=== PATIENT | male | born 1965 | race Caucasian/White ===

== ENCOUNTER 2024-10-12 05:43 | Emergency (ER) | payer BC, SELFPAY ==
[2024-10-12 05:44] VITALS: BMI 32.3
[2024-10-12 05:46] VITALS: BP 146/80; PULSE 116; RESP 20; TEMP 36.9; O2SAT 100
--- NOTE | 2024-10-12 05:53 | EDRME_ITS ---
Rapid Medical Screening Exam [facility] Arrival date/time: 10/12/24 05:43 58M with history of hereditary angioedema (after many tests by cyanide case hardener) presents to ED with some tongue swelling and generalized itchy rash for the past few weeks. Patient has been preemptively intubated twice for this, most recently in the early . Patient's PCP Dr. Kurtz gave him two courses of steroids which resolved problems, but then it comes back after he's done. Patient states epi has never done anything, and Benadryl only makes me sleepy. Chief Complaint: Allergic Reaction Vital signs: Vital Signs Temperature 98.5 F 10/12/24 05:46 Pulse Rate 116 H 10/12/24 05:46 Respiratory Rate 20 10/12/24 05:46 Blood Pressure 146/80 H 10/12/24 05:46 Pulse Oximetry (%) 100 10/12/24 05:46 Oxygen Delivery Method Room Air 10/12/24 05:46
--- NOTE | 2024-10-12 06:37 | EDNOTE_ITS ---
ED Allergic Reaction RME/HPI General Chief complaint: Allergic Reaction Stated complaint: ALLERIGIC REACTION Time Seen by Provider: 10/12/24 06:36 Arrival date/time: 10/12/24 05:43 RME / HPI RME / HPI narrative: 10/12/24 05:4 58M with history of hereditary angioedema (after many tests by gag writer) presents to ED with some tongue swelling and generalized itchy rash for the past few weeks. Patient has been preemptively intubated twice for this, most recently in the early . Patient's PCP Dr. Kurtz gave him two courses of steroids which resolved problems, but then it comes back after he's done. Patient states epi has never done anything, and Benadryl only makes me sleepy. DR. COURTNEY MAIN ED EVALUATION 58 year old male with history of hereditary angioedema and previously intubated as a result presents to the ED for evaluation of tongue swelling today. Accompanied by a diffuse rash.Reportedly the swelling began ~1 week ago. However noted in the last 12 hours the tongue swelling is progressively worsening. States he does have an Epi pen at home which is . Denies taking any medications at home adding the Benadryl only makes him tired. Denies fever, chills, sweating. Denies chest pain, cough, shortness of breath. Denies nausea, vomiting, diarrhea, constipation. Denies dysuria, urinary frequency and urgency. Related Data Home Medications ?Medication ?Instructions ?Recorded ?Confirmed omeprazole 20 mg capsule,delayed 20 mg PO DAILY PRN ACID REFLUX ##0 07/21/13 11/09/22 release Previous Rx's ?Medication ?Instructions ?Recorded docusate sodium 100 mg capsule 100 mg PO BID #40 caps 11/10/22 (Colace) hydrocodone 5 mg-acetaminophen 325 1 tab PO Q6H PRN pain (scale score 11/10/22 mg tablet 7-10) #20 tabs ibuprofen 600 mg tablet 600 mg PO Q8H PRN pain (scale 11/10/22 score 4-6) #15 tabs Allergies Allergy/AdvReac Type Severity Reaction Status Date / Time No Known Allergies Allergy Verified 02/08/24 11:16 Review of Systems Review of Systems Narrative Review of Systems: GEN: No fever, no chills, no weight loss EYES: No discharge, no visual changes, no pain HEENT: +tongue swelling. No ear pain, no congestion, no sore throat PULM: No shortness of breath, no cough, no congestion CV: No chest pain, no dyspnea on exertion, no palpitations GI: No nausea, no vomiting, no diarrhea, no pain, no constipation : No frequency, no urgency, no dysuria MUSC/SKEL: No joint pain, no back pain SKIN: +rash PSYCH: No hallucinations, no depression HEME/LYMPH: No easy bleeding or bruising tendencies NEURO: No weakness, no headache Past Medical History Past Medical History NEUROLOGIC: Positive Neurological Disorders and Meningitis RESPIRATORY: Positive Sleep Apnea GASTROINTESTINAL: Positive Hiatal Hernia and Gastroesophageal Reflux Disease MUSCULOSKELETAL: Positive Carpal Tunnel Syndrome and Fractures ENDOCRINE: Positive Diabetes Mellitus Type 2 OTHER HISTORY: Positive Chicken Pox and Clostridium Difficile Family History FAMILY HISTORY: Positive Family Endocrine Disorders Surgical History SURGICAL: Positive Eye Surgery and Vasectomy Social History SMOKING STATUS: Never smoker ED Exam Narrative Physical exam: GENERAL APPEARANCE: alert and oriented x 4, well-developed, well-nourished, no acute distress HEENT: Normocephalic, atraumatic; pupils equal, round, reactive to light; EOMI; mucous membranes pink, moist; oropharynx clear;bottom lip swelling NECK: Supple LUNGS: CTABL; no wheezes, no rales, no rhonchi HEART: Regular rate, regular rhythm; normal S1, S2; no murmurs ABDOMEN: non distended; normal BS; soft, no tenderness, no guarding, no rebound; no masses, no organomegaly, no hernia BACK: no CVA tenderness EXTREMITIES: atraumatic; no edema NEUROLOGIC: awake; alert and oriented x4; cranial nerves II-XII grossly intact; no focal sensory or motor deficits PSYCHIATRIC: appropriate mood and affect SKIN: warm, dry, normal color; diffuse urticaria Course Quality Measures none Orders Category Date Time Status Blood glucose [Bedside Blood Glucose] NOW Care 10/12/24 05:55 Completed Insert IV NOW Care 10/12/24 05:55 Completed Dexamethasone Inj [Decadron Inj] Med 10/12/24 05:55 Discontinued 10 mg IV X1 ONE DiphenhydrAMINE INJ [Benadryl Inj] Med 10/12/24 06:37 Discontinued 50 mg IVP X1 ONE EPINEPHrine Inj [Adrenalin Inj] Med 10/12/24 06:37 Discontinued 0.3 mg SC X1 ONE Famotidine Inj [Pepcid Inj] Med 10/12/24 05:56 Discontinued 20 mg IVP X1 ONE Famotidine Inj [Pepcid Inj] Med 10/12/24 12:15 Discontinued 20 mg IVP X1 ONE MethylPREDNISolone.* [SoluMEDROL Inj] Med 10/12/24 05:55 Discontinued 125 mg IVP X1 ONE Sodium Chloride 0.9% 1000 ml [Ns] 1,000 ml Med 10/12/24 05:56 Discontinued IV 500 mls/hr Reevaluation(s) Reevaluation #1: Patient reports improvement in symptoms. Patient remains clinically stable throughout the emergency department visit. We reviewed all the treatment plans. Patient is amenable to discharge. Strict return precautions were outlined. Patient was discharged in stable condition. Time: 11:00 Vital Signs Vital signs: Vital Signs Temperature 98.5 F 10/12/24 05:46 Pulse Rate 116 H 10/12/24 05:46 Respiratory Rate 20 10/12/24 05:46 Blood Pressure 146/80 H 10/12/24 05:46 Pulse Oximetry (%) 100 10/12/24 05:46 Oxygen Delivery Method Room Air 10/12/24 05:46 Pulse ox is 100% on room air which is adequate. Allergic Reaction Patient data External records reviewed:: [facility] previous records (I reviewed ED visit on 02/08/2024) Clinical information provided by:: patient Social determinants that could affect healthcare access:: none Patient has the following chronic illnesses:: Hereditary angioedema How is presenting disease/condition affected by chronic disease/condition?: exacerbated by Evaluation data The following diagnostics were reviewed and interpreted by me:: other (specify) (none) Lab and/or radiology exams considered but not ordered:: none Interpretation Summary: N/A Medications / Prescriptions Medications or Prescriptions considered but not ordered:: none Medication administrations:: Medication Administration History Discontinued Medications Dexamethasone Sodium Phosphate (Dexamethasone Sod Phos Inj 10 Mg/Ml Vial) 10 mg IV X1 ONE Stop: 10/12/24 05:56 Last Admin: 10/12/24 06:44 Dose: Not Given Documented By: SF Non-Admin Reason: Discontinued Diphenhydramine HCl (Diphenhydramine Inj 50 Mg/Ml Vial) 50 mg IVP X1 ONE Stop: 10/12/24 06:38 Last Admin: 10/12/24 06:48 Dose: 50 mg Documented By: VERA Epinephrine HCl (Epinephrine Inj 1 Mg/Ml Amp) 0.3 mg SC X1 ONE Stop: 10/12/24 06:38 Last Admin: 10/12/24 06:49 Dose: 0.3 mg Documented By: VERA Famotidine (Famotidine Inj 10 Mg/Ml Vial 2 Ml) 20 mg IVP X1 ONE Stop: 10/12/24 05:57 Last Admin: 10/12/24 06:48 Dose: 20 mg Documented By: VERA Famotidine (Famotidine Inj 10 Mg/Ml Vial 2 Ml) 20 mg IVP X1 ONE Stop: 10/12/24 12:16 Last Admin: 10/12/24 12:32 Dose: 20 mg Documented By: LOUISE Sodium Chloride (Ns) 1,000 mls @ 500 mls/hr IV .Q2H ONE Stop: 10/12/24 07:55 Last Infusion: 10/12/24 08:40 Dose: 0 mls/hr Documented By: Admin: 10/12/24 06:47 Dose: 500 mls/hr Documented By: VERA Methylprednisolone Sodium Succinate (Methylprednisolone Sod Succ 62.5 Mg/Ml 2ml Vial) 125 mg IVP X1 ONE Stop: 10/12/24 05:56 Last Admin: 10/12/24 06:48 Dose: 125 mg Documented By: VERA See above Consultations Consultation(s) initiated? (list below): No Diagnosis Most likely diagnosis given after review of the tests above:: Allergic reaction Angioedema Urticaria Admission Indicated Admission indicated?: not indicated Admission Request Was there a request for admission?: No Disposition Plan Disposition Plan: Discharge Discharge Attestation Discharge Attestation: The patient and all family members were given an opportunity to ask questions and understood the discharge instructions. Discharge instructions specifically effects, indications for sooner follow up or return to the emergency department, and the expected course of current diagnosis. Patient condition: Stable Discharge Plan Plan Patient Disposition: HOME (Self Care) Prescriptions/Referrals Prescriptions/Med Rec: No Action omeprazole 20 MG capsule,delayed release(DR/EC) 20 mg PO DAILY PRN (Reason: ACID REFLUX) Qty: 0 hydrocodone-acetaminophen 5-325 mg tablet 1 tab PO Q6H MDD 4 PRN (Reason: pain (scale score 7-10)) Qty: 20 0RF docusate sodium [Colace] 100 mg capsule 100 mg PO BID Qty: 40 0RF ibuprofen 600 mg tablet 600 mg PO Q8H PRN (Reason: pain (scale score 4-6)) Qty: 15 0RF Referrals: Temporary Provider,ED [Physician] - In 1 week Problem List Clinical Impression: Allergic reaction, Angioedema, Urticaria Patient/Caregiver Discharge Instructions Education Materials: ED Angioedema, ED Hives (Adult) Print Language: Maori Stand Alone Forms: [employer] Award Info., Patient Portal Info Letter
[2024-10-12] MEDS: SODIUM CHLORIDE 0.9% 1000 ML 1,000 ML 500 ML IV (06:47)
[2024-10-12] MEDS: MethylPREDNISolone SOD SUCC 62.5 MG/ML 2ML VIAL 125 MG IVP (06:48)
[2024-10-12] MEDS: FAMOTIDINE INJ 10 MG/ML VIAL 2 ML 20 MG IVP ×2 (06:48→12:32)
[2024-10-12] MEDS: DiphenhydrAMINE INJ 50 MG/ML VIAL IVP (06:48)
[2024-10-12 06:49] VITALS: BP 134/90; PULSE 98
[2024-10-12] MEDS: EPINEPHrine INJ 1 MG/ML AMP 0.3 MG SC (06:49)
[2024-10-12 07:13] VITALS: BP 123/90; PULSE 96; RESP 18; TEMP 37.1; O2SAT 98
--- NOTE | 2024-10-12 07:13 | PC.NURSE ---
REPORT RECEIVED AT THIS TIME; PER REPORT, PT COMING IN FOR ANGIOEDEMA; PT HAS HX OF COMING IN FOR IT AND BEING INTUBATED. HE SAID IT STARTED ABOUT 1 WEEK AGO BUT HIS MOUTH AND TONGUE GOT PROGRESSIVELY WORSE WITH THE SWELLING. PT DENIES DIFFICULTY BREATHING AT THIS TIME. PT GCS 15. PT CONNECTED TO MONITORS AT THIS TIME.
[2024-10-12 08:53] VITALS: BP 131/85; PULSE 106; RESP 14; TEMP 37.1; O2SAT 96
[2024-10-12 10:11] VITALS: BP 116/89; PULSE 95; RESP 15; TEMP 36.7; O2SAT 96
[2024-10-12 12:15] VITALS: BP 114/82; PULSE 82; RESP 19; TEMP 37; O2SAT 98
== END 2024-10-12 12:34 | disposition home or self-care (01) ==
PROVIDERS: Emergency Provider Emergency Medicine; PCP Family Medicine
DX: T78.3XXA Angioneurotic edema, initial encounter (principal)
CPT/HCPCS: 96361; 96372; 96374; 96375; 96376; 99284; J0171; J1200; J2919; J3490; J7030

== ENCOUNTER → 2024-11-20 | Outpatient (CLI) | payer BC, SELFPAY ==
[2024-11-20 08:51] LABS: Alanine Aminotransferase 35 U/L (10-49); Albumin, Serum 4.1 gm/dL (3.5-5.0); Albumin/Globulin Ratio 1.6 (1.2-2.2); Alkaline Phosphatase 133 U/L (46-116); Anion Gap 6 (7-16); Aspartate Amino Transferase 26 U/L (0-34); BUN/Creatinine Ratio 13 Ratio (12-20); Bilirubin,Total 0.4 mg/dL (0.3-1.2); Blood Urea Nitrogen 13 mg/dL (9-23); Calcium 9.2 mg/dL (8.3-10.6); Calcium (Corrected) 9.2 mg/dL (8.5-10.1); Cardiac Risk Estimate 3.9 RATIO (4.0-6.7); Chloride 108 mMol/L (98-107); Cholesterol 164 mg/dL (132-200); Globulin 2.5 gm/dL (2.3-3.5); Glucose 109 mg/dL (74-106); HDL Cholesterol 42 mg/dL (40-60); LDL Cholesterol,Calculated 104 mg/dL (0-130); Osmolality,Calculated 286 (275-295); Sodium 143 mMol/L (136-145); Total Protein 6.6 gm/dL (5.7-8.2); Triglycerides 91 mg/dL (30-150); eGFR > 60 See Note
== END | disposition home or self-care (01) ==
LOC: COPL 07:35
PROVIDERS: PCP Family Medicine; Referring Provider Family Medicine; Visit Provider Family Medicine
DX: E78.2 Mixed hyperlipidemia (principal); E66.9 Obesity, unspecified
CPT/HCPCS: 36415; 80053; 80061

== ENCOUNTER → 2024-11-30 | Outpatient (CLI) | payer BC, SELFPAY ==
[2024-11-30 07:18] LABS: Misc Send Out* See Sep Rpt
[2024-12-06 06:59] LABS: Complement Component C3* 176 mg/dL (82-185); Complement Component C4c* 30 mg/dL (15-53)
== END | disposition home or self-care (01) ==
LOC: COPL 06:58
PROVIDERS: PCP Family Medicine; Referring Provider Allergy & Immunology; Visit Provider Allergy & Immunology
DX: L50.0 Allergic urticaria (principal); R23.4 Changes in skin texture
CPT/HCPCS: 36415; 86160

== ENCOUNTER → 2025-02-01 | Outpatient (CLI) | payer BC, SELFPAY ==
--- NOTE | 2025-02-01 15:34 | XR_ITS ---
Examination: Thoracic spine 3 views Technique one AP lateral coned lateral reversal spine 3 views Exam date and time: February 01, 2025 1606 hrs. Indications: Upper back pain beginning 6 weeks ago. Findings: Adequate alignment thoracic vertebral bodies Moderate diffuse thoracic disc narrowing Mild thoracic spondylosis Prominent osteopenia Impression: Moderate diffuse thoracic degenerative disc disease
== END | disposition home or self-care (01) ==
LOC: CDIM 15:23
PROVIDERS: Referring Provider Family Medicine; Visit Provider Family Medicine
DX: M51.34 Other intervertebral disc degeneration, thoracic region (principal)
CPT/HCPCS: 72070

== ENCOUNTER → 2025-08-23 | Outpatient (CLI) | payer BC, SELFPAY ==
[2025-08-23 08:40] LABS: Basophils # (Auto) 0.1 Thou/mm3 (0.0-0.2); Basophils % (Auto) 1 % (0-2.5); Eosinophils # (Auto) 0.3 Thou/mm3 (0.0-0.5); Eosinophils % (Auto) 3 % (0-10); Hematocrit 50.6 % (41.0-53.0); Hemoglobin 16.9 g/dL (13.5-16.0); Immature Granulocytes Auto 0.12 Thou/mm3 (0.00-0.00); Lymphocytes # (Auto) 2.4 Thou/mm3 (1.0-4.8); Lymphocytes % (Auto) 26 % (10-50); Mean Corpuscular HGB Conc 33.4 g/dl (31.0-37.0); Mean Corpuscular Hemoglobin 29.0 pg (25.0-35.0); Mean Corpuscular Volume 87 fL (80-100); Monocytes # (Auto) 0.7 Thou/mm3 (0.0-0.8); Monocytes % (Auto) 8 % (0-12); Neutrophils # (Auto) 5.7 Thou/mm3 (1.8-7.7); Neutrophils % (Auto) 62 % (37-80); Nucleated Red Blood Cell # 0.00 Thou/mm3 (0.00-0.00); Nucleated Red Blood Cell % 0 /100 WBC (0); Platelet Count 338 Thou/mm3 (140-440); RDW Standard Deviation 41.6 fL (35.1-43.9); Red Blood Count 5.83 Miln/mm3 (4.50-5.90); White Blood Count 9.3 Thou/mm3 (3.8-10.6)
[2025-08-23 08:50] LABS: Glucose Estimated Average 103 mg/dL (80-131); Hemoglobin A1C 5.2 % Hgb (4.8-6.0)
[2025-08-23 08:55] LABS: Alanine Aminotransferase 52 U/L (10-49); Albumin, Serum 5.0 gm/dL (3.5-5.0); Albumin/Globulin Ratio 1.9 (1.2-2.2); Alkaline Phosphatase 110 U/L (46-116); Anion Gap 9 (7-16); Aspartate Amino Transferase 33 U/L (0-34); BUN/Creatinine Ratio 9 Ratio (12-20); Bilirubin,Total 0.6 mg/dL (0.3-1.2); Blood Urea Nitrogen 11 mg/dL (9-23); Calcium 10.3 mg/dL (8.3-10.6); Calcium (Corrected) 10.3 mg/dL (8.5-10.1); Carbon Dioxide 30.4 mMol/L (20.0-31.0); Cardiac Risk Estimate 4.5 RATIO (4.0-6.7); Chloride 104 mMol/L (98-107); Cholesterol 202 mg/dL (132-200); Creatinine (Component) 1.2 mg/dL (0.6-1.3); Globulin 2.6 gm/dL (2.3-3.5); Glucose 99 mg/dL (74-106); HDL Cholesterol 45 mg/dL (40-60); LDL Cholesterol,Calculated 128 mg/dL (0-130); Osmolality,Calculated 284 (275-295); Potassium 4.9 mMol/L (3.4-5.1); Sodium 143 mMol/L (136-145); Thyroid Stimulating Hormone 1.61 uIU/mL (0.55-4.78); Total Protein 7.6 gm/dL (5.7-8.2); Triglycerides 144 mg/dL (30-150); eGFR > 60 See Note
== END | disposition home or self-care (01) ==
LOC: COPL 06:48
PROVIDERS: PCP Family Medicine; Referring Provider Family Medicine; Visit Provider Family Medicine
DX: R06.02 Shortness of breath (principal)
CPT/HCPCS: 36415; 80053; 80061; 83036; 84443; 85025